=== PATIENT | male | born 1950 ===

== ENCOUNTER → 2021-04-12 | Outpatient (CLI) | payer MEDICAID ==
--- NOTE | 2021-04-12 16:26 | RAD ---
EXAM: Dual modality PET-CT Scan DATE: 04/12/2021 RADIOPHARMACEUTICAL: 13 mCi F-18 fluorodeoxyglucose (FDG) IV. CLINICAL HISTORY: Non-small cell lung cancer. COMPARISON: There are no comparison images available. TECHNIQUE: Approximately 45 minutes after tracer administration, routine, attenuation-corrected Posit mariela Emission Tomography (PET) images were obtained from the level of the base of the skull through th e level of the mid thighs. Tomographic reconstructions are reviewed in coronal, transaxial and sagitt al planes. Non-contrast CT imaging was performed for attenuation correction and localization purpose s only. These images do not constitute a diagnostic-quality CT examination and were not used to diag nose disease independently of the PET images. The blood glucose level was 117 mg/dL at the time of FDG administration. Injection time: 1400 hours. Scan time: 1445 hours. SUV max background: 3.4 (liver). *One or more of the following individualized dose reduction techniques were utilized for this examina tion: 1. Automated exposure control. 2. Adjustment of the mA and/or kV according to patient size. 3. Use of iterative reconstruction technique. FINDINGS: There is a radiotracer avid left suprahilar mass measuring approximately 9.0 cm on transaxi al images within SUV of 23.6, consistent with known primary bronchogenic malignancy. There are multip le nodular foci of increased radiotracer activity within the medial and lateral left lower lobe, the largest of which measures 2.2 cm within SUV of 7.8. There are also radiotracer avid left hilar and in frahilar lymph nodes, the largest of which measures 1.7 within SUV of 7.8. There is increased radiotr acer activity within SUV of 6.7 associated with a small amount of loculated pleural fluid and pleural thickening throughout the left hemithorax. There is mild increased radiotracer activity within SUV o f 2.2 within soft tissue density along the lateral left chest wall, possibly due to granulation tissu e status post biopsy or thoracostomy tube placement. No contralateral abnormal radiotracer activity is seen. Similarly, no abnormal extrathoracic radiotra cer activity is seen. There is degenerative activity involving the axial and appendicular skeleton. T here is physiologic activity within the bowel and renal collecting system. The CT portion of the exam demonstrates a heterogeneous left upper lobe there may subtle mass abuttin g the hilum and pleura, measuring approximately 9.0 cm in transaxial dimension. There is a small amou nt of partially loculated left pleural fluid superimposed on pleural thickening. There is left hemith orax volume loss with leftward mediastinal shift. There is a small loculated left apical pneumothorax or apical cavitation. There is additional loculated gas or cavitation involving the left lung base. There is diffuse left lung increased interstitial opacity. There is bronchiectasis with mucus pluggin g throughout the aerated left lung. There are spiculated nodular opacities within the left lower lobe measuring up to 2.2 cm. There is a thin linear and linear opacity within the right lung apex extending to the pleura, the bert earance of which favors pleural parenchymal scarring. There is emphysema. There is a small amount of fluid within the pericardial recesses sees. The heart is normal in size. T here is calcified atherosclerotic plaque within the coronary arteries. There is aspirated mucus withi n the left mainstem bronchus. There are pathologically enlarged prevascular and left hilar lymph node s, the latter which measure up to 1.7 cm. Evaluation of the visualized portion of the brain is unremarkable. There is no neck lymphadenopathy. There is gynecomastia. No suspicious hepatic lesion is seen. The gallbladder, pancreas, spleen and ad renal glands are unremarkable. There is mild right renal pelviectasis. There is no nj hydronephros is. There is a punctate nonobstructing left renal stone and small suspected simple left renal cyst. There is a large right inguinal hernia containing fat and loops of bowel. There is no evidence of bow el incarceration or mechanical obstruction. There is colonic diverticulosis. The prostate is enlarged and deforms the bladder base. There is rectal wall thickening. There is aortic and aortic branch ves shy atherosclerosis. No pathologically enlarged mesenteric or retroperitoneal lymph node is seen. The re are degenerative changes throughout the spine, hips and shoulders. There are multiple benign bone islands. There is no convincing suspicious or acute osseous finding. IMPRESSION: 1. Large radiotracer avid left suprahilar mass measuring approximately 9.0 cm in transaxial dimension s with an SUV of 23.6, with known primary malignancy. 2. Multiple scattered nodular opacities throughout the left lung, the largest of which measures 1.7 c m with an SUV of 7.8. These are likely due to satellite neoplasms or lymphangitic spread of neoplasm. 3. Radiotracer avid left hilar and infrahilar lymph nodes due to metastatic disease and mild radiotra cer activity within a small loculated pleural effusion and pleural thickening due to metastatic disea se. 4. Mild radiotracer activity associated with soft tissue density along the lateral left chest wall, l ikely due to a prior biopsy track or thoracostomy tube track. 5. No convincing contralateral lung malignancy or extrathoracic malignancy. 6. Small loculated left pneumothorax or cavitating pleural-based lesions. Correlation with prior stud ies may be useful to assess for interval change. There is hemithorax volume loss with mediastinal hakeem ft. 7. Aspirated debris within the left mainstem bronchus and diffuse left bronchial wall thickening and mucous plugging. There is superimposed diffuse interstitial infiltrate or changes due to lymphangitic spread of tumor. 8. Emphysema. 9. Incidental large right inguinal hernia containing loops of bowel. There is no evidence of electrical mechanic al obstruction or incarceration. 10. Spiculated opacity with linear extension to the overlying pleura within the right lung apex. This demonstrates no significant increased radiotracer activity, favoring pleural parenchymal scarring. 11. Please refer to the above report for additional findings regarding the non-PET portion of the exa m. Electronically signed by: Georgette Ceja MD (04/12/2021 4:23 PM) [id number]
== END ==
LOC: PETSC 13:36
PROVIDERS: ATTEND Internal Medicine
DX: C34.01 Malignant neoplasm of right main bronchus (principal); N20.0 Calculus of kidney; K40.90 Unilateral inguinal hernia, without obstruction or gangrene, not specified as recurrent; I25.10 Atherosclerotic heart disease of native coronary artery without angina pectoris; N62 Hypertrophy of breast
CPT/HCPCS: 78815; A9552